=== PATIENT | male | born 1980 | race Caucasian/White ===

== ENCOUNTER 2017-04-14 | Inpatient (IN) ==
[2017-04-14] MEDS ORDERED: ASPIRIN PO ONE (00:05)
[2017-04-14 00:49] LABS: MANUAL DIFF NEEDED? NO
[2017-04-14 00:51] LABS: BASO% 0.4 % (0.0-0.8); EOS# 0.28 X1000 (0.0-0.7); EOS% 2.6 % (0.0-10.0); HEMATOCRIT 40.4 % (42.0-52.0); HEMOGLOBIN 13.9 g/dL (14.0-18.0); IMM GRAN# 0.03 X1000 (0.0-0.04); IMM GRAN% 0.3 % (0.0-0.5); LYMPH# 2.24 X1000 (1.2-3.4); MCH 30.8 PG (27-31); MCHC 34.4 g/dL (33-37); MCV 89.4 FL (81-99); MONO# 0.79 X1000 (0.11-0.59); MONO% 7.4 % (1.7-9.3); MPV 11.4 FL (7.4-10.4); NEUT% 68.3 % (42.2-75.2); PLT 240 X1000 (130-400); RBC 4.52 XMIL (4.7-6.1)
[2017-04-14 01:01] LABS: INR 0.97; PROTIME 10.2 Seconds (9.2-11.7); PTT 26.4 Seconds (22.0-36.0)
[2017-04-14] MEDS ORDERED: G.I. COCKTAIL PO ONE (01:09)
--- NOTE | 2017-04-14 01:11 | PROVIDER DOCUMENTATION ---
HPI-Chest Pain - General Chief Complaint: Chest Pain Stated Complaint: CP Time Seen by Provider: 04/14/17 00:23 Source: patient Allergies/Adverse Reactions: Patient Allergies Allergy/AdvReac Type Severity Reaction Status Date / Time No Known Allergies Allergy Verified 04/14/17 00:52 Home Medications: Home Medication List Medication Instructions Recorded Confirmed Last Taken Type Amlodipine [Norvasc] 10 mg PO DAILY 03/27/17 04/14/17 04/13/17 History Aspirin 81 mg PO DAILY 03/27/17 04/14/17 04/13/17 History Bupropion [Wellbutrin] 150 mg PO QAM 03/27/17 04/14/17 04/13/17 History Lisinopril 40 mg PO DAILY 03/27/17 04/14/17 04/13/17 History Carbamazepine [Epitol] 200 mg PO DAILY 04/14/17 04/14/17 04/13/17 History Hydrocodone/Acetaminophen [[place] 1 each PO 5XDAY 04/14/17 04/14/17 04/13/17 History 10-325 Tablet] Morphine E.r. [Ms Contin] 15 mg PO Q12HR 04/14/17 04/14/17 04/13/17 History Omeprazole [Prilosec] 40 mg PO DAILY 04/14/17 04/14/17 04/13/17 History - History of Present Illness-CP Nature of Presenting Problem: 37 Location: reports: substernal Chest Pain Radiation: reports: no radiation Quality of Pain: reports: pressure Severity in ED: moderate Onset/Duration: 4-6 hours ago Timing: still present Context/Activities at Onset: reports: none Modifying Factors: improves with: nothing Associated Symptoms: reports: denies symptoms Nitro Today/Relief: no nitro taken today Aspirin Treatment Today: 81 mg x 2, provided by ED Prior Chest Pain/Cardiac Workup: reports: no prior cardiac workup, non-cardiac Similar Symptoms Previously?: No Recently Seen Here or By Another Healthcare Provider: No Review of Systems - Adult - REVIEW OF SYSTEMS - ADULT Constitutional: reports: see HPI Eyes: reports: no symptoms reported Ears, Nose, Mouth & Throat: reports: no symptoms reported Cardiovascular: reports: see HPI, chest pain Respiratory: reports: no symptoms reported Gastrointestinal: reports: no symptoms reported Genitourinary: reports: no symptoms reported Musculoskeletal: reports: no symptoms reported Integumentary: reports: no symptoms reported Neurological: reports: no symptoms reported Psychiatric: reports: no symptoms reported Endocrine: reports: no symptoms reported Hematologic/Lymphatic: reports: no symptoms reported Allergic/Immunologic: reports: no symptoms reported All Other Systems: Reviewed and Negative Past History - Adult - PAST MEDICAL HISTORY-ADULT Review of Records: reports: Old Records Reviewed, Nursing Assessment Review, Medications Reviewed, Social history reviewed & non-contributory. Cardiovascular: reports: HTN Gastrointestinal: reports: GERD Psychiatric: reports: depression - PRIOR SURGERIES/PROCEDURES Surgical/Procedure History: reports: appendectomy, back/neck - IMMUNIZATION STATUS Childhood Immunizations: See Nurse Assessment Flu Vaccine: See Nurse Assessment Physical Exam-General - PHYSICAL EXAM-ADULT Initial Vital Signs Reviewed: Yes - CONSTITUTIONAL General Appearance: appears well, alert, no apparent distress - EYES Eyes: PERRL/EOMI, pink conjunctivae - HEAD, EARS, NOSE, MOUTH & THROAT HENMT: normocephalic/atraumatic, moist mucous membranes, normal ENT inspection - NECK Neck: non-tender, full range of motion, supple, normal inspection - RESPIRATORY Respiratory: chest non-tender, lungs clear, normal breath sounds, no pleuratic chest pain, no respiratory distress, no accessory muscle use - CARDIOVASCULAR Cardiovascular: normal peripheral pulses, regular rate, rhythm, no edema, no gallop, no JVD, no murmur - GASTROINTESTINAL (ABDOMEN) Abdominal Exam: normal bowel sounds, non tender, soft, no organomegaly, no pulsatile mass. negative: hernia, mass, hepatomegaly, spleenomegaly, McBurney' s point tenderness, Campbell's sign, obturator sign, prominent aortic pulsations, psoas, Rovsing's sign - LYMPHATIC Lymphatic: no adenopathy - MUSCULOSKELETAL Back Exam: normal inspection, no CVA tenderness, no vertebral tenderness Extremity: normal range of motion, non-tender, normal gait, normal inspection, no pedal edema, no calf tenderness, normal capillary refill, pelvis stable Peripheral Pulses: radial (R): 2+, radial (L): 2+, dorsalis-pedis (R): 2+, dorsalis-pedis (L): 2+ - SKIN Integumentary: normal color, normal turgor, warm/dry - NEUROLOGIC Neurologic: grossly normal, no motor/sensory deficits - PSYCHIATRIC Psych/Mental Status: normal mood/affect, normal thought content, normal thought process, oriented x 3 Progress - PLAN OF CARE/RESULTS Progress/Plan/Lab Results: Vital Signs - 8 hr 04/14/17 00:11 04/14/17 02:15 Temperature 98.3 F Pulse Rate 103 H 82 Respiratory Rate 18 17 Blood Pressure 140/92 121/82 O2 Sat by Pulse Oximetry 99 95 Laboratory Results - last 24 hr 04/14/17 04/14/17 04/14/17 00:35 00:35 00:35 WBC 10.65 RBC 4.52 L Hgb 13.9 L Hct 40.4 L MCV 89.4 MCH 30.8 MCHC 34.4 RDW Std Deviation 14.1 Plt Count 240 MPV 11.4 H Immature Gran % (Auto) 0.3 Neut % (Auto) 68.3 Lymph % (Auto) 21.0 [place] % (Auto) 7.4 Eos % (Auto) 2.6 Baso % (Auto) 0.4 Immature Gran # (Auto) 0.03 Neut # (Auto) 7.27 H Lymph # (Auto) 2.24 [place] # (Auto) 0.79 H Eos # (Auto) 0.28 Baso # (Auto) 0.04 PT INR PTT (Actin FS) D-Dimer 0.21 Sodium 144 Potassium 3.6 Chloride 101 Carbon Dioxide 24 L Anion Gap 19 BUN 11 Creatinine 1.1 Estimated GFR/1.73 m2 > 60 BUN/Creatinine Ratio 10 Glucose 103 Calculated Osmolality 286 Calcium 8.8 Magnesium 2.0 Total Bilirubin 0.20 AST 31 ALT 46 H Alkaline Phosphatase 83 Creatine Kinase 279 H Creatine Kinase Index 1.3 CK-MB (CK-2) 3.60 Troponin T Bjt-R-Wjivcrhmvno Pept Total Protein 6.9 Albumin 3.9 Globulin 3.0 Albumin/Globulin Ratio 1.3 04/14/17 04/14/17 04/14/17 00:35 00:35 00:35 WBC RBC Hgb Hct MCV MCH MCHC RDW Std Deviation Plt Count MPV Immature Gran % (Auto) Neut % (Auto) Lymph % (Auto) [place] % (Auto) Eos % (Auto) Baso % (Auto) Immature Gran # (Auto) Neut # (Auto) Lymph # (Auto) [place] # (Auto) Eos # (Auto) Baso # (Auto) PT 10.2 INR 0.97 PTT (Actin FS) 26.4 D-Dimer Sodium Potassium Chloride Carbon Dioxide Anion Gap BUN Creatinine Estimated GFR/1.73 m2 BUN/Creatinine Ratio Glucose Calculated Osmolality Calcium Magnesium Total Bilirubin AST ALT Alkaline Phosphatase Creatine Kinase Creatine Kinase Index CK-MB (CK-2) Troponin T < 0.010 Aut-H-Ylolbaqecjy Pept 8 Total Protein Albumin Globulin Albumin/Globulin Ratio Orders Category Date Time Status Cardiac Monitoring DIRECTED Care 04/14/17 00:05 Active Oxygen Therapy- ED Nursing DIRECTED Care 04/14/17 00:05 Active Saline Loc NOW Care 04/14/17 00:05 Active CHEST-2 VIEWS [RAD] Stat Exams 04/14/17 00:05 Taken CBC WITH ELECTRONIC DIFF [HEME] Stat Lab 04/14/17 00:35 Completed CK PROFILE [SP CHEM] Stat Lab 04/14/17 00:35 Completed COMPREHENSIVE METABOLIC PANEL [CHEM] Stat Lab 04/14/17 00:35 Completed D-DIMER [CHEM] Stat Lab 04/14/17 00:35 Completed MAGNESIUM [CHEM] Stat Lab 04/14/17 00:35 Completed PRO B-NATRIURETIC PEPTIDE Stat Lab 04/14/17 00:35 Completed PROTIME WITH INR [COAG] Stat Lab 04/14/17 00:35 Completed PTT [COAG] Stat Lab 04/14/17 00:35 Completed TROPONIN T Stat Lab 04/14/17 00:35 Completed Aspirin Med 04/14/17 00:05 Discontinued 243 mg PO NOW ONE Lido/Brooks Alk/Al&mg Hydrox [G.i. Cocktail] Med 04/14/17 01:09 Discontinued 30 ml PO NOW ONE Morphine Med 04/14/17 02:18 Once 4 mg IV NOW ONE Nitroglycerin Med 04/14/17 02:09 Discontinued 1 inch TOP NOW ONE Ondansetron [Zofran] Med 04/14/17 02:19 Once 4 mg IV NOW ONE EKG [EKG] Stat Ther 04/14/17 00:04 Ordered EKG [EKG] Stat Ther 04/14/17 00:05 Ordered Result Diagrams: 04/14/17 00:35 04/14/17 00:35 - CONSULTS/PCP/HOSPITALIST Notification #1 *Consult/PCP/Hospitalist*: Dr. Ayers Time Discussed: 02:19 Consult Disposition: Will see in ED, Admit Departure - Departure Date of Disposition Decision: 04/14/17 Time of Disposition Decision: 02:19 DIAGNOSIS: Chest pain Qualifiers: Chest pain type: unspecified Qualified Code(s): R07.9 - Chest pain, unspecified Disposition: HOME 01 Certified Medical Emergency: Emergent Condition: Stable Referrals and Follow-Ups: None,PCP [Primary Care Provider] - - Critical Care Note This patient required my direct & personal management of CC.: No Attestation - Physician/ CHRISTI Attestation Patient care was provided by Advanced Practice Provider:: Yes Advanced Practice Provider:: Kali Le Advanced Practice Provider documentation review:: The Mid-level provider documentation, treatment plan and medical decision making was reviewed by the physician who agrees with all treatment and medical decision making by the MLP. The physician spent face to face time with patient:: No Advanced Practice Provider documentation review:: Supervising physician onsite and consulted in the evaluation and care of this patient. The physician did not have a face to face encounter with the patient.
[2017-04-14 01:18] LABS: AGAP 19; ALBUMIN 3.9 g/dL (3.5-5.0); ALKALINE PHOSPHATASE 83 U/L (32-122); BUN 11 mg/dL (8-22); CALCIUM 8.8 mg/dL (8.8-10.2); CHLORIDE 101 mmol/L (98-107); COSMO 286; GOT 31 U/L (10-34); GPT 46 U/L (10-44); POTASSIUM 3.6 mmol/L (3.5-5.1); SODIUM 144 mmol/L (136-145); TCO2 24 mmol/L (25-35); TOTAL PROTEIN 6.9 g/dL (6.3-8.3)
[2017-04-14 01:21] LABS: CK PROFILE 279 U/L (24-204)
[2017-04-14 01:50] LABS: CK INDEX 1.3 (0.0-2.5)
[2017-04-14] MEDS ORDERED: NITROGLYCERIN TOP ONE (02:09)
[2017-04-14] MEDS ORDERED: MORPHINE IV ONE (02:18)
[2017-04-14] MEDS ORDERED: ZOFRAN IV ONE (02:19)
[2017-04-14] MEDS ORDERED: ZOFRAN IV PRN ×2 (05:53→06:16)
--- NOTE | 2017-04-14 05:55 | ED EKG INTERP ---
This chart was entered by Carmine Ibarra Scribe, acting as scribe for Harsh Grubbs MD. EKG Interpretation - EKG Time of EKG reading by physician:: 00:51 EKG Read and Signed by:: Harsh Grubbs EKG Interpretation (*Must complete 3 of following elements*): Abnormal (T wave abnormality, consider inferior ischemia; T wave abnormality, consider anterolateral ischemia) Rate: 104 Rhythm: Sinus tachycardia Attestation - Physician/ CHRISTI Attestation Patient care was provided by Advanced Practice Provider:: No The physician spent face to face time with patient:: Yes Advanced Practice Provider documentation review:: Supervising physician onsite and consulted in the evaluation and care of this patient. The physician did have a face to face encounter with the patient. This chart was documented by the indicated scribe, (Carmine Ibarra Scribe) and accurately reflects the services I performed and decisions made by Romie bernal Robert H., MD, as attested by the provider's signature.
[2017-04-14] MEDS ORDERED: TYLENOL PO PRN (06:16)
[2017-04-14] MEDS ORDERED: NITROGLYCERIN SL PRN (06:16)
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
[2017-04-14 08:05] LABS: MANUAL DIFF NEEDED? NO
--- NOTE | 2017-04-14 08:10 | Diag Imaging Result Doc PS360 ---
EXAM: CHEST-2 VIEWS HISTORY: CP TECHNIQUE: PA and lateral chest COMMENT: There is no evidence of acute cardiac or pulmonary disease. There are no previous studies available for comparison. IMPRESSION: No acute disease. Electronically signed by Saeed Lopez 04/14/2017 8:08 AM
[2017-04-14 08:16] LABS: BASO% 0.3 % (0.0-0.8); EOS# 0.22 X1000 (0.0-0.7); EOS% 3.3 % (0.0-10.0); HEMATOCRIT 39.7 % (42.0-52.0); HEMOGLOBIN 13.3 g/dL (14.0-18.0); LYMPH# 1.51 X1000 (1.2-3.4); LYMPH% 22.4 % (20.5-51.1); MCH 30.6 PG (27-31); MCHC 33.5 g/dL (33-37); MCV 91.3 FL (81-99); MONO# 0.57 X1000 (0.11-0.59); MONO% 8.4 % (1.7-9.3); MPV 11.6 FL (7.4-10.4); NEUT% 65.6 % (42.2-75.2); PLT 221 X1000 (130-400); RBC 4.35 XMIL (4.7-6.1)
[2017-04-14 08:24] LABS: INR 1.02; PROTIME 10.7 Seconds (9.2-11.7); PTT 28.8 Seconds (22.0-36.0)
[2017-04-14 08:43] LABS: AGAP 13; BUN 11 mg/dL (8-22); CALCIUM 8.8 mg/dL (8.8-10.2); CHLORIDE 104 mmol/L (98-107); COSMO 288; MAGNESIUM 2.1 mg/dL (1.5-2.7); SODIUM 144 mmol/L (136-145); TCO2 27 mmol/L (25-35)
[2017-04-14 08:58] LABS: UR AMPHETAMINES QUAL NONE DETECTED (NONE DETECT); UR BARBITUATES QUAL NONE DETECTED (NONE DETECT); UR BENZODIAZEPIN QUAL NONE DETECTED (NONE DETECT); UR CANNABINOIDS QUAL NONE DETECTED (NONE DETECT); UR COCAINE QUAL NONE DETECTED (NONE DETECT); UR METHADONE QUAL NONE DETECTED (NONE DETECT); UR OPIATES QUAL PRESUMPTIVE POSITIVE (NONE DETECT); UR OXYCODONE QUAL NONE DETECTED (NONE DETECT); UR PCP QUAL NONE DETECTED (NONE DETECT)
[2017-04-14] MEDS ORDERED: TEGRETOL PO SCH (09:00)
[2017-04-14] MEDS ORDERED: WELLBUTRIN PO SCH (09:00)
[2017-04-14] MEDS: ASPIRIN PO SCH (09:19)
[2017-04-14] MEDS: NORVASC PO SCH (09:19)
[2017-04-14] MEDS: PRINIVIL PO SCH (09:19)
[2017-04-14] MEDS: PRILOSEC PO SCH (09:24)
[2017-04-14] MEDS: LOVENOX SUBQ SCH (09:25)
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
[2017-04-14 12:24] LABS: AMYLASE 36 U/L (20-200); LIPASE 19 U/L (13-60)
[2017-04-14] MEDS: MORPHINE IV PRN ×3 (14:27→22:25)
--- NOTE | 2017-04-14 14:39 | PROGRESS NOTE ---
DATE: 04/14/2017 SUBJECTIVE: Mr. Archer presented with chest pain this morning. A 37-year-old, presented to the ER approximately midnight and stated he on the previous morning, 04/13/2017, he woke up with chest pain and substernal chest pain. Was nonradiating and was constant, sharp in nature. He did report associated symptoms of shortness of breath, one episode of dizziness. States his chest pain continued all day and was constant and decided to come the emergency room for evaluation. He is admitted with chest pain, rule out acute coronary syndrome. Has a history of bipolar depression, hypertension, nicotine dependence. OBJECTIVE: Vital Signs: Today temperature 98.3 degrees, pulse 80, respirations 18, blood pressure 116/73. Lungs: Clear in all lung saul. Cardiovascular: Regular rate without murmur or S3. Abdomen: Soft. Skin: Warm and dry. Urine output 500 mL. LABORATORY STUDIES: White count 6750, hematocrit 39, platelet count 221,000. Sodium 144, potassium 4.0, chloride 104, bicarb 27, BUN 11, creatinine 1.1. ASSESSMENT AND PLAN: 1. Presented with quite atypical chest pain, sharp. He has ruled out for myocardial infarction. This has been recurrent condition for 7 years apparently. Abnormal electrocardiogram with diffuse repolarization abnormality noted. Plan is to get a 2D echocardiogram to look at the left ventricle apex. Dr. Hart has evaluated. He stated that sometime patients have apical hypertrophy and obtaining a Lexiscan myocardial perfusion stress test. 2. Hypertension. 3. Gastroesophageal reflux. 4. Chronic back pain. 5. Bipolar depression. 6. Nicotine dependence. Have reviewed lab and reviewed orders. I do not see any change. cc: Ellis Pandya MD
[2017-04-14] MEDS: TEGRETOL PO SCH (22:26)
--- NOTE | 2017-04-15 05:27 | EKG Report ---
Test Performed on : 04/14/2017 00:08:05 AM Test Reason : C/p Blood Pressure : / mmHG Vent. Rate : 104 BPM Atrial Rate : 104 BPM P-R Int : 142 ms QRS Dur : 078 ms QT Int : 328 ms P-R-T Axes : 049 060 -38 degrees QTc Int : 431 ms Sinus tachycardia. T wave abnormality, consider inferior ischemia T wave abnormality, consider anterolateral ischemia Abnormal ECG No previous ECGs available Unconfirmed Result
--- NOTE | 2017-04-15 05:50 | EKG Report ---
Test Performed on : 04/14/2017 10:25:58 AM Test Reason : Chest Pain Blood Pressure : / mmHG Vent. Rate : 072 BPM Atrial Rate : 072 BPM P-R Int : 150 ms QRS Dur : 096 ms QT Int : 388 ms P-R-T Axes : 049 066 -50 degrees QTc Int : 424 ms Normal sinus rhythm. T wave abnormality, consider inferior ischemia T wave abnormality, consider anterolateral ischemia Abnormal ECG When compared with ECG of 14-APR-2017 00:08, (Unconfirmed) No significant change was found Confirmed by Edmundo Carlton DO ([id number]) on 04/18/2017 6:59:18 AM
[2017-04-15] MEDS: PRILOSEC PO SCH (06:02)
[2017-04-15] MEDS: LOVENOX SUBQ SCH (06:02)
[2017-04-15 06:42] LABS: HDL 24 mg/dL (35-55); LDL 53 mg/dL; TRIGLYCERIDES 343 mg/dL (39-160); VLDL 69 mg/dL
[2017-04-15] MEDS ORDERED: LEXISCAN ONE (08:15)
[2017-04-15] MEDS ORDERED: WELLBUTRIN XL PO SCH (09:00)
[2017-04-15] MEDS: PRINIVIL PO SCH (10:03)
[2017-04-15] MEDS: ASPIRIN PO SCH (10:04)
[2017-04-15] MEDS: TEGRETOL PO SCH (10:04)
[2017-04-15] MEDS: MORPHINE IV PRN ×2 (10:04→14:33)
[2017-04-15] MEDS: NORVASC PO SCH (10:04)
[2017-04-15 11:35] VITALS: BP 118/75
--- NOTE | 2017-04-15 15:16 | Diag Imaging Result Document ---
PROCEDURE NAME: MYOCARDIAL PERF SCAN, STR/REST - 04/15/2017 INDICATION: Chest pain. Abnormal EKG. PROCEDURES PERFORMED: 1. Walking Lexiscan stress. 2. One-day stress/rest myocardial perfusion imaging. PROCEDURE IN DETAIL: Mr. Archer was brought to the nuclear laboratory and had a resting study with injection of 14.1 mCi of technetium-99m sestamibi with usual imaging protocol utilized. He subsequently was brought back down and had a walking Lexiscan stress. At peak stress, he was injected with 43.4 mCi of technetium-99m sestamibi with usual imaging protocol utilized FINDINGS: LEXISCAN STRESS RESULTS: 1. Baseline EKG shows sinus rhythm. He has T-wave inversions noted inferiorly and laterally. 2. No ischemic-related EKG changes or significant arrhythmias were identified during the course of the study. PERFUSION IMAGING RESULTS: 1. No evidence of abnormal extracardiac uptake. 2. TID ratio 0.88. 3. Perfusion imaging shows a very small size, very slight intensity defect in the mid inferior wall. This defect does have reversibility associated with it, but I believe this is most likely secondary to interference with gut uptake on the rest images. I believe this is a low- risk study. No evidence of other ischemic changes. The defect seen on this study is extremely small. 4. Normal ejection fraction of 68%. End-diastolic volume 134, end systolic volume of 43. Normal wall motion. cc: MD Van Braswell MD
[2017-04-15] MEDS ORDERED: PNEUMOVAX 23 IM ONE (16:15)
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
--- NOTE | 2017-04-15 16:35 | ECHO REPORT ---
ORDER DATE: 04/15/2017 INDICATION: Abnormal EKG. Chest pain. Shortness of breath. Hypertension. FINDINGS: 1. Right atrium is mildly enlarged at 4.3 cm. 2. Mild tricuspid regurgitation. RV systolic pressure of 42. 3. Normal RV size and systolic function. 4. Mild pulmonic insufficiency. 5. Mild left atrial enlargement at 4.3 cm. 6. No mitral valve prolapse. Trace mitral regurgitation. 7. Normal LV size, end-diastolic dimension of 4.9. Mild left ventricular hypertrophy with a posterior and interventricular septal wall thickness of 1.2 cm each. Normal LV systolic function. Calculated EF of 64%. Definity echocardiogram contrast was used to delineate the endocardial borders and there is no clear evidence of intracardiac thrombus. 8. Aortic valve opens well. It is trileaflet. No evidence of stenosis or insufficiency. 9. Aorta appears normal in visualized segments. 10. No pericardial effusion seen. cc: MD Van Braswell MD
== END 2017-04-15 16:26 | disposition home or self-care (01) ==
LOC: ED → 4N 06:29 → SUATTDRO 06:29 → 4N 06:35
PROVIDERS: ATTEND Emergency Medicine